=== PATIENT | female | born 1970 | race Caucasian/White ===

== ENCOUNTER 2020-07-21 23:03 | Emergency (ER) | payer BC ==
[2020-07-21] MEDS ORDERED: Sodium Chloride 0.9% 10 ML Syringe FLUSH PRN (23:10)
[2020-07-21] MEDS ORDERED: Sodium Chloride 0.9% 2.5 ML Syringe FLUSH PRN (23:10)
--- NOTE | 2020-07-21 23:10 | EDM.PDOC ---
ED HPI GENERAL MEDICAL PROBLEM - General Stated Complaint: ERRATIC HEART BEAT Time Seen by Provider: 07/21/20 23:09 Source of Information: Reports: Patient History Limitations: Reports: No Limitations - History of Present Illness INITIAL COMMENTS - FREE TEXT/NARRATIVE: 49-year-old female past medical history of Crohn's disease, anxiety, PCOS presents for 2 to 3 weeks of on and off erratic heartbeat associated with a chest pressure sensation. She notes symptoms worsening over the last 3 days. She states that she takes her heart rate with a machine at home and that it is ranged from 180s to 30s. She notes that symptoms tonight felt like her heart flopping around and beating quickly. She did endorse some mild shortness of breath associated with this. When the symptoms are occurring she endorses a mild chest tightness that does radiate into her back. She denies any lower extremity swelling or pain. 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 Chest Pain Score (Numeric/FACES): 4 - Related Data Allergies Allergy/AdvReac Type Severity Reaction Status Date / Time adalimumab [From Humira] Allergy Rash Verified 07/21/20 23:11 Home Meds: Home Meds Betamethasone/Clotrimazole [Lotrisone] 1 gm TOP ASDIRECTED 07/21/20 [History] Certolizumab Pegol [Cimzia] 200 mg INJECT ASDIRECTED 07/21/20 [History] Clobetasol [Clobetasol Propionate 0.05% Cream] 0.05 percent TOP ASDIRECTED 07/21/20 [History] Doxepin [SINEquan] 10 mg PO DAILY 07/21/20 [History] Omeprazole 40 mg PO DAILY 07/21/20 [History] Ondansetron [Zofran ODT] 4 mg PO ASDIRECTED 07/21/20 [History] Sucralfate 1 gram PO ASDIRECTED 07/21/20 [History] Venlafaxine HCl 75 mg PO DAILY 07/21/20 [History] Zolpidem [Ambien] 12.5 mg PO BEDTIME 07/21/20 [History] hydrOXYzine HCL [hydrOXYzine] 25 mg PO ASDIRECTED 07/21/20 [History] ED ROS GENERAL - Review of Systems Review Of Systems: Comprehensive ROS is negative, except as noted in HPI. ED EXAM, GENERAL - Physical Exam Exam: See Below Exam Limited By: No Limitations General Appearance: Alert, WD/WN, No Apparent Distress Throat/Mouth: Normal Voice, No Airway Compromise Head: Atraumatic, Normocephalic Neck: Normal Inspection Respiratory/Chest: No Respiratory Distress, Lungs Clear, Normal Breath Sounds, No Accessory Muscle Use Cardiovascular: Normal Peripheral Pulses, Regular Rate, Rhythm, No Edema Extremities: Normal Inspection Neurological: Alert, Normal Gait Psychiatric: Normal Affect, Normal Mood Skin Exam: Warm, Dry, Intact, Normal Color #1 Interpretation EKG Date: 07/21/20 Time: 23:07 Rhythm: NSR Rate (Beats/Min): 96 [place]: Normal P-Wave: Present QRS: Normal ST-T: Normal QT: Normal VT/PQ Interval: 146 Comparison: NA - No Prior EKG EKG Interpretation Comments: Normal EKG #2 Interpretation EKG Date: 07/21/20 Time: 23:33 Rhythm: Other (tachycardia) Rate (Beats/Min): 185 [place]: Normal P-Wave: Absent QRS: Other (mildly wide at 131) ST-T: Normal QT: Normal Comparison: Change From Previous EKG EKG Interpretation Comments: tachycardia, likely SVT Course - Vital Signs Last Recorded V/S: Last Vital Signs Temp 97.5 F 07/21/20 23:11 Pulse 94 07/22/20 00:37 Resp 18 07/22/20 00:37 BP 110/71 07/22/20 00:37 Pulse Ox 96 07/22/20 00:37 - Orders/Labs/Meds Orders: Active Orders 24 hr Category Date Time Status Cardiac Monitoring [RC] . DIRECTED Care 07/21/20 23:11 Active EKG Documentation Completion [RC] STAT Care 07/21/20 23:10 Active Pulse Oximetry [RC] ASDIRECTED Care 07/21/20 23:11 Active Sodium Chloride 0.9% [Saline Flush] Med 07/21/20 23:10 Active 10 ml FLUSH ASDIRECTED PRN Sodium Chloride 0.9% [Saline Flush] Med 07/21/20 23:10 Active 2.5 ml FLUSH ASDIRECTED PRN Saline Lock Insert [OM.PC] Stat Oth 07/21/20 23:11 Ordered Medication Orders Sodium Chloride (Sodium Chloride 0.9% 10 Ml Syringe) 10 ml FLUSH ASDIRECTED PRN PRN Reason: Keep Vein Open Last Admin: 07/21/20 23:27 Dose: 10 ml Documented by: DEMETRIO Sodium Chloride (Sodium Chloride 0.9% 2.5 Ml Syringe) 2.5 ml FLUSH ASDIRECTED PRN PRN Reason: Keep Vein Open Last Admin: 07/21/20 23:27 Dose: 2.5 ml Documented by: DEMETRIO Labs: Laboratory Tests 07/21/20 07/21/20 07/21/20 Range/Units 23:15 23:15 23:15 WBC 10.88 (4.0-11.0) K/uL RBC 5.64 (4.30-5.90) M/uL Hgb 16.6 H (12.0-16.0) g/dL Hct 49.3 H (36.0-46.0) % MCV 87.4 (80.0-98.0) fL MCH 29.4 (27.0-32.0) pg MCHC 33.7 (31.0-37.0) g/dL RDW Std Deviation 41.2 (28.0-62.0) fl RDW Coeff of Ashley 13 (11.0-15.0) % Plt Count 389 (150-400) K/uL MPV 9.70 (7.40-12.00) fL Neut % (Auto) 60.9 (48.0-80.0) % Lymph % (Auto) 29.7 (16.0-40.0) % [place] % (Auto) 7.2 (0.0-15.0) % Eos % (Auto) 1.7 (0.0-7.0) % Baso % (Auto) 0.5 (0.0-1.5) % Neut # (Auto) 6.6 H (1.4-5.7) K/uL Lymph # (Auto) 3.2 H (0.6-2.4) K/uL [place] # (Auto) 0.8 (0.0-0.8) K/uL Eos # (Auto) 0.2 (0.0-0.7) K/uL Baso # (Auto) 0.1 (0.0-0.1) K/uL Nucleated RBC % 0.0 /100WBC Nucleated RBCs # 0 K/uL INR 0.99 APTT 25.3 (18.6-31.3) SEC Sodium 136 (136-145) mmol/L Potassium 3.5 (3.5-5.1) mmol/L Chloride 99 (98-107) mmol/L Carbon Dioxide 27.5 (21.0-32.0) mmol/L BUN 15 (7.0-18.0) mg/dL Creatinine 1.1 H (0.6-1.0) mg/dL Est Cr Clr Drug Dosing 59.19 mL/min Estimated GFR (MDRD) 53.2 ml/min Glucose 106 (74-106) mg/dL Calcium 9.7 (8.5-10.1) mg/dL Magnesium 2.2 (1.8-2.4) mg/dL Total Bilirubin 0.3 (0.2-1.0) mg/dL AST 31 (15-37) IU/L ALT 50 (14-63) IU/L Alkaline Phosphatase 121 H (46-116) U/L Troponin I < 0.050 (0.000-0.056) ng/mL Total Protein 9.6 H (6.4-8.2) g/dL Albumin 4.4 (3.4-5.0) g/dL Globulin 5.2 H (2.6-4.0) g/dL Albumin/Globulin Ratio 0.9 (0.9-1.6) Lipase 189 (73-393) U/L TSH 3rd Generation 3.38 (0.36-3.74) uIU/mL HCG, Qual (NEG) SARS-CoV-2 RNA (ARY) (NEGATIVE) 07/21/20 07/21/20 Range/Units 23:15 23:46 WBC (4.0-11.0) K/uL RBC (4.30-5.90) M/uL Hgb (12.0-16.0) g/dL Hct (36.0-46.0) % MCV (80.0-98.0) fL MCH (27.0-32.0) pg MCHC (31.0-37.0) g/dL RDW Std Deviation (28.0-62.0) fl RDW Coeff of Ashley (11.0-15.0) % Plt Count (150-400) K/uL MPV (7.40-12.00) fL Neut % (Auto) (48.0-80.0) % Lymph % (Auto) (16.0-40.0) % [place] % (Auto) (0.0-15.0) % Eos % (Auto) (0.0-7.0) % Baso % (Auto) (0.0-1.5) % Neut # (Auto) (1.4-5.7) K/uL Lymph # (Auto) (0.6-2.4) K/uL [place] # (Auto) (0.0-0.8) K/uL Eos # (Auto) (0.0-0.7) K/uL Baso # (Auto) (0.0-0.1) K/uL Nucleated RBC % /100WBC Nucleated RBCs # K/uL INR APTT (18.6-31.3) SEC Sodium (136-145) mmol/L Potassium (3.5-5.1) mmol/L Chloride (98-107) mmol/L Carbon Dioxide (21.0-32.0) mmol/L BUN (7.0-18.0) mg/dL Creatinine (0.6-1.0) mg/dL Est Cr Clr Drug Dosing mL/min Estimated GFR (MDRD) ml/min Glucose (74-106) mg/dL Calcium (8.5-10.1) mg/dL Magnesium (1.8-2.4) mg/dL Total Bilirubin (0.2-1.0) mg/dL AST (15-37) IU/L ALT (14-63) IU/L Alkaline Phosphatase (46-116) U/L Troponin I (0.000-0.056) ng/mL Total Protein (6.4-8.2) g/dL Albumin (3.4-5.0) g/dL Globulin (2.6-4.0) g/dL Albumin/Globulin Ratio (0.9-1.6) Lipase (73-393) U/L TSH 3rd Generation (0.36-3.74) uIU/mL HCG, Qual NEGATIVE (NEG) SARS-CoV-2 RNA (ARY) NEGATIVE (NEGATIVE) Meds: Medications Generic Name Dose Route Start Last Admin Trade Name Freq PRN Reason Stop Dose Admin Sodium Chloride 10 ml 03/15/21 23:10 07/21/20 23:27 Sodium Chloride 0.9% 10 Ml Syringe FLUSH 10 ml ASDIRECTED PRN Administration Keep Vein Open Sodium Chloride 2.5 ml 07/21/20 23:10 07/21/20 23:27 Sodium Chloride 0.9% 2.5 Ml Syringe FLUSH 2.5 ml ASDIRECTED PRN Administration Keep Vein Open Discontinued Medications Generic Name Dose Route Start Last Admin Trade Name Chava PRN Reason Stop Dose Admin Sodium Chloride 1,000 mls @ 999 mls/hr 07/21/20 23:19 07/21/20 23:26 Normal Saline IV 07/22/20 00:19 999 mls/hr .Bolus ONE Administration Metoprolol Tartrate 25 mg 07/21/20 23:19 07/21/20 23:24 Metoprolol Tartrate 25 Mg Tab PO 07/21/20 23:20 25 mg ONETIME ONE Administration Metoprolol Tartrate 5 mg 07/21/20 23:35 07/21/20 23:37 Metoprolol Tartrate 5 Mg/5 Ml Sdv IVPUSH 07/21/20 23:36 5 mg ONETIME ONE Administration Metoprolol Tartrate Confirm 07/21/20 23:36 07/21/20 23:56 Metoprolol Tartrate 5 Mg/5 Ml Sdv Administered 07/21/20 23:37 Not Given Dose 5 mg .ROUTE .STK-MED ONE Metoprolol Tartrate 5 mg 07/21/20 23:52 07/21/20 23:57 Metoprolol Tartrate 5 Mg/5 Ml Sdv IVPUSH 07/21/20 23:53 5 mg ONETIME ONE Administration - Re-Assessments/Exams Free Text/Narrative Re-Assessment/Exam: 07/21/20 23:14 Low suspicion pulmonary embolism given lack of hypoxia and chronicity of symptoms, on and off nature of symptoms, normal HR, no evidence of right heart strain on EKG. Will get basic labs including electrolytes, TSH. We will follow up results and disposition accordingly. Will give 1-L IVFB as patient's HR is in the high 90s; will give metoprolol 25mg and reassess. If labs and imaging are all unremarkable, anticipate d/c with c ardiology f/u and will write short rx for metoprolol for patient to trial. Explained ADRs of metoprolol including lightheadedness, weakness, dizziness, and low HR that patient states she can monitor at home. Explained that we will keep her on tele monitoring in ED but she may need a Holter monitor and further cargo service supervisor workup if her apparent cardiac dysrhythmia cannot be captured in ER. 07/21/20 23:27 Patient had episode lasting ~30seconds of tachycardia with HR max 140s. 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 On tele monitor unable to print so difficult to tell SVT vs sinus tach, appears mostly regular, HR max 160s. EKG leads attached so that repeat EKG can be performed if similar episode occurs again. 07/21/20 23:36 We were able to capture an event on EKG (see EKG interpretation); HR 185 in what appears to be SVT as I do not see any P waves. As these episodes are transient lasting 30-60 seconds and resolving, will defer adenosine and trial metoprolol 5mg IV. Will monitor BP carefully. 1-L IVFB is going and patient's BP prior to administration is normal/high. Will f/u additional labs, cardiac monitoring, and disposition. 07/22/20 00:26 The metoprolol does seem to be helping. Heart rate remains in the 80s to low 100s. And getting a repeat EKG as it does look a regular on the monitor. There are P waves however 07/22/20 00:47 Spoke with our hospitalist Dr. Miranda who notes that patient would likely benefit from inpatient cardiology consultation and recommends transfer of care. Patient is agreeable to transfer to [facility]. Spoke with the ED physician Dr. Artis who agrees for transfer of care. Departure - Departure Time of Disposition: 00:48 Disposition: DC/Tfer to Acute Hospital 02 Condition: Fair Clinical Impression: Irregular heart rhythm - Discharge Information Referrals: PCP,None [Primary Care Provider] - Sepsis Event Note (ED) - Focused Exam Vital Signs: Vital Signs Temp Pulse Pulse Resp BP BP Pulse Ox 07/22/20 00:37 94 18 110/71 96 07/22/20 00:24 99 18 118/68 95 07/22/20 00:08 86 18 139/74 97 07/21/20 23:57 102 H 125/56 L 07/21/20 23:38 151 H 18 145/75 H 97 07/21/20 23:37 92 145/76 H 07/21/20 23:24 88 146/74 H 07/21/20 23:11 97.5 F 99 18 140/94 H 98 07/21/20 23:09 100 16 140/94 H 98 - My Orders Last 24 Hours: My Active Orders 07/21/20 23:10 EKG Documentation Completion [RC] STAT Sodium Chloride 0.9% [Saline Flush] 10 ml FLUSH ASDIRECTED PRN Sodium Chloride 0.9% [Saline Flush] 2.5 ml FLUSH ASDIRECTED PRN 07/21/20 23:11 Cardiac Monitoring [RC] . DIRECTED Pulse Oximetry [RC] ASDIRECTED Saline Lock Insert [OM.PC] Stat - Assessment/Plan Last 24 Hours: My Active Orders 07/21/20 23:10 EKG Documentation Completion [RC] STAT Sodium Chloride 0.9% [Saline Flush] 10 ml FLUSH ASDIRECTED PRN Sodium Chloride 0.9% [Saline Flush] 2.5 ml FLUSH ASDIRECTED PRN 07/21/20 23:11 Cardiac Monitoring [RC] . DIRECTED Pulse Oximetry [RC] ASDIRECTED Saline Lock Insert [OM.PC] Stat
[2020-07-21] MEDS ORDERED: Sodium Chloride 0.9% 1,000 ML IV ONE (23:19)
[2020-07-21] MEDS ORDERED: Metoprolol Tartrate 25 MG Tab PO ONE (23:19)
[2020-07-21] MEDS ORDERED: Metoprolol Tartrate 5 MG/5 ML SDV IVPUSH ONE ×2 (23:35→23:52)
[2020-07-21] MEDS ORDERED: Metoprolol Tartrate 5 MG/5 ML SDV ONE (23:36)
--- NOTE | 2020-07-21 23:36 | CR ---
INDICATION: Chest pain TECHNIQUE: Chest radiograph 1 view COMPARISON: None FINDINGS: Mediastinum: The mediastinum is normal in appearance. The heart silhouette is normal in size and morphology. Lung: Both lungs are unremarkable in appearance. No sign of pleural effusion seen. No pneumothorax is identified. Bone and Soft tissue: Unremarkable for age. IMPRESSION: 1. No acute cardiopulmonary disease is seen. Dictated by: Rasheed Whipple MD @ 07/21/2020 23:35:44 (Electronically Signed)
[2020-07-22 00:01] LABS: BLOOD UREA NITROGEN,BUN 15 mg/dL (7.0-18.0); CARBON DIOXIDE,CO2 27.5 mmol/L (21.0-32.0); CHLORIDE,CL 99 mmol/L (98-107); GLUCOSE RANDOM 106 mg/dL (74-106); LIPASE 189 U/L (73-393); POTASSIUM,K 3.5 mmol/L (3.5-5.1); SODIUM,NA 136 mmol/L (136-145)
[2020-07-22 00:38] VITALS: BP 110/71; PULSE 94
== END 2020-07-22 01:33 ==
LOC: MW.ED 23:03
DX: I49.9 Cardiac arrhythmia, unspecified (principal); Z88.8 Allergy status to other drugs, medicaments and biological substances; Z79.899 Other long term (current) drug therapy; Z20.822 Contact with and (suspected) exposure to COVID-19
CPT/HCPCS: 36415; 71045; 80053; 83690; 83735; 84443; 84484; 84703; 85025; 85610; 85730; 87635; 93005; 96374; 99285; A9270; J3490; J7030; U0002

== ENCOUNTER 2021-03-06 20:30 | Emergency (ER) | payer BC ==
[2021-03-06] MEDS ORDERED: Dexamethasone 10 MG/ML SDV IVPUSH ONE (22:49)
[2021-03-06] MEDS ORDERED: Prochlorperazine 10 MG/2 ML SDV IVPUSH ONE (22:49)
[2021-03-06] MEDS ORDERED: diphenhydrAMINE 50 MG/ML SDV IVPUSH ONE (22:49)
[2021-03-06] MEDS ORDERED: Ketorolac 15 MG/ML SDV IVPUSH ONE (22:49)
[2021-03-06] MEDS ORDERED: Dextrose 5%-Lactated Ringers 1,000 ML IV SCH (23:00)
[2021-03-07] MEDS ORDERED: diphenhydrAMINE 50 MG/ML SDV IVPUSH ONE (01:10)
--- NOTE | 2021-03-07 01:13 | EDM.PDOC ---
ED HPI GENERAL MEDICAL PROBLEM - General Chief Complaint: Headache Stated Complaint: MIGRAINE Time Seen by Provider: 03/06/21 22:28 - History of Present Illness INITIAL COMMENTS - FREE TEXT/NARRATIVE: CHIEF COMPLAINT(S): Migraine HISTORY OF PRESENT ILLNESS: This is a 50-year-old woman with a past medical history of migraine headache who comes to the emergency department with a chief complaint of migraine. The patient states that she has had a migraine for the last 2 weeks. She describes her migraine as all over and behind her eyes which she describes as throbbing and 8 out of 10 associated with photophobia and phonophobia. She tried Motrin, Excedrin, indomethacin and sumatriptan without any relief. She states that she went to her primary care physician who did an outpatient work-up earlier this week including CT which was normal. She states that it feels similar to her headache that she has had in the past. She denies any associated trouble walking, speaking or swallowing. She stated that she has not had any vomiting, neck pain or neck stiffness. She denies any fevers. REVIEW OF SYSTEMS: Constitutional: Denies fever, chills. Eyes: Denies eye pain Ears, Nose, Mouth, & Throat: Denies earache Cardiovascular: Denies chest pain Respiratory: Denies shortness of breath Gastrointestinal: Denies Nausea, vomiting, diarrhea, hematochezia. Genitourinary: Denies hematuria Skin:Denies a rash MSK: Denies joint pain Neurological: Positive for headache, photophobia, phonophobia. Denies numbness, tingling, weakness, trouble walking, speaking or swallowing Psychiatric: Denies depression PAST MEDICAL HISTORY: As per history of present illness and as reviewed below otherwise noncontributory. SURGICAL HISTORY: As per history of present illness and as reviewed below otherwise noncontributory. SOCIAL HISTORY: As per history of present illness and as reviewed below otherwise noncontributory. FAMILY HISTORY: As per history of present illness and as reviewed below otherwise noncontributory. EXAMINATION OF ORGAN SYSTEMS/BODY AREAS: Constitutional: Blood pressure is 140/70, heart rate 81, respiratory rate 17 with an oxygen saturation of 98% on room air. Temperature 37.1 General: Well-appearing woman who is in no acute distress Psychiatric: Appropriate mood and affect. Eyes: No scleral icterus or conjunctival erythema pupils were 3 mm and reactive bilaterally. Extraocular movements intact. No vertical or horizontal nystagmus. ENMT: Moist mucous membranes. No pharyngeal erythema Cardiovascular: Regular, rate, and rhythm. No gallops, murmurs, or rubs. Bilateral upper extremity pulses symmetric and intact. No peripheral edema. No JVD. Respiratory: Lungs clear to auscultation bilaterally. No wheezes, rales, or rhonchi. Gastrointestinal: Soft, non-tender, non-distended. Normoactive bowel sounds Genitourinary: No suprapubic tenderness Musculoskeletal: Normal range of motion. Skin: No lesions or abrasions. Neurological: AOx4. CN grossly intact. Stregth 5/5 in bilateral upper and lower extremity. Sensation is intact bilaterally in upper and lower extremity. Gait appears normal. Finger to nose, heel to khan, rapid alternating movements intact. MEDICAL DECISION MAKING AND COURSE IN THE ED WITH INTERPRETATION/REVIEW OF DIAGNOSTIC STUDIES: This is a 50-year-old man with a past medical history of migraine headaches who comes to the emergency department with typical migraine who overall appears well and is neurologically intact without any focal deficit. At this time we will treat the patient's migraine symptomatically with Toradol, Compazine, Benadryl and Decadron and reevaluate. I do not believe any repeat imaging or other labs are indicated. Patient was requesting to leave and reported that her migraine was improved. At this time I do believe the patient is stable for discharge. She was given symptomatic treatment at home. She is to return for new or worsening symptoms. She was amenable discharge and had no further questions. DISPOSITION: The patient was discharged home in stable condition. The patient will follow up with neurology your primary care physician in 3 to 5 days CONDITION: Fair PROCEDURES: None FINAL IMPRESSION(S)/DIAGNOSES: 1. Acute migraine headache Xavier Mosqueda M.D. Bilateral Head Pain Score (Numeric/FACES): 8 - Related Data Allergies Allergy/AdvReac Type Severity Reaction Status Date / Time adalimumab [From Humira] Allergy Rash Verified 03/06/21 21:18 Home Meds: Home Meds Betamethasone/Clotrimazole [Lotrisone] 1 gm TOP ASDIRECTED 07/21/20 [History] Certolizumab Pegol [Cimzia] 200 mg INJECT ASDIRECTED 07/21/20 [History] Clobetasol [Clobetasol Propionate 0.05% Cream] 0.05 percent TOP ASDIRECTED 07/07 09/26 [History] Doxepin [SINEquan] 10 mg PO DAILY 07/21/20 [History] Omeprazole 40 mg PO DAILY 07/21/20 [History] Ondansetron [Zofran ODT] 4 mg PO ASDIRECTED 07/21/20 [History] Sucralfate 1 gram PO ASDIRECTED 07/21/20 [History] Venlafaxine HCl 75 mg PO DAILY 07/21/20 [History] Zolpidem [Ambien] 12.5 mg PO BEDTIME 07/21/20 [History] hydrOXYzine HCL [hydrOXYzine] 25 mg PO ASDIRECTED 07/21/20 [History] Past Medical History HEENT History: Reports: None Cardiovascular History: Reports: None Respiratory History: Reports: None Gastrointestinal History: Reports: Other (See Below) Other Gastrointestinal History: Crohns Genitourinary History: Reports: None 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 History: Reports: Polycystic Ovaries Musculoskeletal History: Reports: None Neurological History: Reports: None Psychiatric History: Reports: Anxiety, Depression Endocrine/Metabolic History: Reports: None Oncologic (Cancer) History: Reports: None Dermatologic History: Reports: None - Infectious Disease History Infectious Disease History: Reports: None Social & Family History - Family History Family Medical History: No Pertinent Family History - Tobacco Use Tobacco Use Status *Q: Never Tobacco User - Caffeine Use Caffeine Use: Reports: Soda - Recreational Drug Use Recreational Drug Use: No ED ROS GENERAL - Review of Systems Review Of Systems: See Below ED EXAM, GENERAL - Physical Exam Exam: See Below Course - Vital Signs Last Recorded V/S: Last Vital Signs Temp 37.1 C 03/06/21 21:18 Pulse 91 03/07/21 01:26 Resp 18 03/07/21 01:26 BP 155/83 H 03/07/21 01:26 Pulse Ox 98 03/07/21 01:26 - Orders/Labs/Meds Meds: Medications Discontinued Medications Generic Name Dose Route Start Last Admin Trade Name Freq PRN Reason Stop Dose Admin Dexamethasone 10 mg 03/06/21 22:49 03/06/21 23:09 Dexamethasone 10 Mg/Ml Sdv IVPUSH 03/06/21 22:50 10 mg ONETIME ONE Administration Diphenhydramine HCl 25 mg 03/06/21 22:49 03/06/21 23:09 Diphenhydramine 50 Mg/Ml Sdv IVPUSH 03/06/21 22:50 25 mg ONETIME ONE Administration Diphenhydramine HCl 25 mg 03/07/21 01:10 03/07/21 01:22 Diphenhydramine 50 Mg/Ml Sdv IVPUSH 03/07/21 01:11 25 mg ONETIME ONE Administration Diphenhydramine HCl Confirm 03/07/21 01:17 Diphenhydramine 50 Mg/Ml Sdv Administered 03/07/21 01:18 Dose 50 mg .ROUTE .STK-MED ONE Dextrose/Lactated Ringer's 1,000 mls @ 999 mls/hr 03/06/21 23:00 03/06/21 23:09 Dextrose 5%-Lactated Ringers IV 999 mls/hr ASDIRECTED JM Administration Ketorolac Tromethamine 15 mg 03/06/21 22:49 03/06/21 23:10 Ketorolac 15 Mg/Ml Sdv IVPUSH 03/06/21 22:50 15 mg ONETIME ONE Administration Prochlorperazine Edisylate 5 mg 03/06/21 22:49 03/06/21 23:09 Prochlorperazine 10 Mg/2 Ml Sdv IVPUSH 03/06/21 22:50 5 mg ONETIME ONE Administration Departure - Departure Time of Disposition: 01:11 Disposition: Home, Self-Care 01 Condition: Fair Clinical Impression: Migraine, Akathisia - Discharge Information *PRESCRIPTION DRUG MONITORING PROGRAM REVIEWED*: No *COPY OF PRESCRIPTION DRUG MONITORING REPORT IN PATIENT DEANGELO: No Instructions: Migraine Headache, [id number] Referrals: Renetta Villatoro DO [Primary Care Provider] - Forms: ED Department Discharge Additional Instructions: You were evaluated today on an emergent basis. At this time you reported that your headache did improve after the migraine medications. I do believe the anxiety that you are experiencing are likely secondary to the Compazine that we provided you to help with your migraine. We did give you Benadryl which should counteract this medication. If you are still feeling anxious you may use Ativan that is prescribed to you at home. This usually does not last very long and I recommend you return to the emergency department if you have any worsening headache or symptoms. Please follow-up with neurology for continued management of migraine. [facility] - Neurology Professional [facility] [address] [place] [address], [address] [place] [address] The patient is informed of any results of their evaluation and diagnostic workup and all questions are answered. They are given discharge instructions and return precautions. The patient is stable for discharge. The patient states they understand and agree with the plan and that they will return if their symptoms get worse or if they have any new concerns. The following information is given to patients seen in the emergency department who are being discharged to home. This information is to outline your options for follow-up care. We provide all patients seen in our emergency department with a follow-up referral. The need for follow-up, as well as the timing and circumstances, are variable depending upon the specifics of your emergency department visit. If you don't have a primary care physician on staff, we will provide you with a referral. We always advise you to contact your personal physician following an emergency department visit to inform them of the circumstance of the visit and for follow-up with them and/or the need for any referrals to a consulting specialist. The emergency department will also refer you to a specialist when appropriate. This referral assures that you have the opportunity for follow-up care with a specialist. All of these measure are taken in an effort to provide you with optimal care, which includes your follow-up. Under all circumstances we always encourage you to contact your private physician who remains a resource for coordinating your care. When calling for follow-up care, please make the office aware that this follow-up is from your recent emergency room visit. If for any reason you are refused follow-up, please contact the [facility] Emergency Department at and asked to speak to the emergency department charge nurse. Sepsis Event Note (ED) - Evaluation Sepsis Screening Result: No Definite Risk
[2021-03-07] MEDS ORDERED: diphenhydrAMINE 50 MG/ML SDV ONE (01:17)
[2021-03-07 02:51] VITALS: BP 155/83; PULSE 91
== END 2021-03-07 01:26 | disposition home or self-care (01) ==
LOC: MW.ED 20:30
DX: G43.909 Migraine, unspecified, not intractable, without status migrainosus (principal); G25.71 Drug induced akathisia; T50.905A Adverse effect of unspecified drugs, medicaments and biological substances, initial encounter; Z88.8 Allergy status to other drugs, medicaments and biological substances; Z79.899 Other long term (current) drug therapy
CPT/HCPCS: 96374; 96375; 96376; 99283; J0780; J1100; J1200; J1885; J7121